=== PATIENT | male | born 1995 | race Caucasian/White ===

== ENCOUNTER 2019-01-19 19:46 | Emergency (ER) | payer OTHER ==
[2019-01-19] MEDS ORDERED: Ondansetron 4 MG/2 ML SDV IVPUSH ONE (20:30)
[2019-01-19] MEDS ORDERED: Sodium Chloride 0.9% 1,000 ML IV SCH (20:30)
[2019-01-19] MEDS ORDERED: HYDROmorphone 0.5 MG/0.5 ML Syringe IVPUSH ONE (20:32)
--- NOTE | 2019-01-19 20:42 | EDM.PDOC ---
<DanielleOlvin gleason Leonard - Last Filed: 01/19/19 21:36> ED HPI GENERAL MEDICAL PROBLEM - General Chief Complaint: Abdominal Pain Stated Complaint: ABDOMINAL PAIN Time Seen by Provider: 01/19/19 20:07 Source of Information: Reports: Patient History Limitations: Reports: No Limitations - History of Present Illness INITIAL COMMENTS - FREE TEXT/NARRATIVE: Mr. Cruz is a very pleasant 23-year-old man with no medical or surgical history whatsoever, who states that he felt feverish and had midline lower abdominal pain when he woke around 05:00 this morning. He describes the pain is sharp and crampy in character. It is constant, but made worse with most movements. He states that he had nausea yesterday, but no nausea or emesis today. He states that he had some urinary frequency yesterday, but not today. No recent flank or back pain. No recent constipation, diarrhea, or bloody bowel movements. No prior similar symptoms. The patient states that he went to the walk-in clinic today, but that no tests were performed before he was sent here for evaluation. His last solid food was around 13:00 today. The patient does not have a PCP. - Related Data Allergies Allergy/AdvReac Type Severity Reaction Status Date / Time doxycycline Allergy Diarrhea Verified 01/19/19 20:14 Home Meds: Home Meds . [No Known Home Meds] 01/19/19 [History] Past Medical History - Past Health History Medical/Surgical History: Denies Medical/Surgical History Social & Family History - Tobacco Use Smoking Status *Q: Never Smoker - Caffeine Use Caffeine Use: Reports: Tea - Alcohol Use Alcohol Use History: Yes Alcohol Use Frequency: Socially - Recreational Drug Use Recreational Drug Use: No - Living Situation & Occupation Living situation: Reports: Single, with Family (Brother) Occupation: Employed ([employer]) ED ROS GENERAL - Review of Systems Review Of Systems: ROS reveals no pertinent complaints other than HPI. ED EXAM, GI/ABD - Physical Exam Exam: See Below Exam Limited By: No Limitations General Appearance: Alert, WD/WN, No Apparent Distress Eyes: Bilateral: Normal Appearance, EOMI Ears: Normal External Exam, Hearing Grossly Normal Nose: Normal Inspection Throat/Mouth: Normal Inspection, Normal Lips, Normal Voice, No Airway Compromise Head: Atraumatic, Normocephalic Neck: Normal Inspection, Full Range of Motion Respiratory/Chest: No Respiratory Distress, Lungs Clear, Normal Breath Sounds, No Accessory Muscle Use Cardiovascular: Normal Peripheral Pulses, Regular Rate, Rhythm, No Edema, No Gallop, No JVD, No Murmur, No Rub GI/Abdominal Exam: Normal Bowel Sounds, Soft, No Organomegaly, No Distention, No Abnormal Bruit, No Mass, Tender (Palpation of most of the patient's abdomen increases his midline infraumbilical pain, although he does not have significant tenderness to most of the abdomen. The patient does, however, have tenderness to his left lower quadrant more than his right lower quadrant, and he has significant tenderness to the suprapubic region.) (Male) Exam: Deferred Rectal (Males) Exam: Deferred Back Exam: Normal Inspection, Full Range of Motion. No: CVA Tenderness (L), CVA Tenderness (R) Extremities: Normal Inspection, Normal Range of Motion, No Pedal Edema, Normal Capillary Refill Neurological: Alert, Oriented, Normal Cognition, No Motor/Sensory Deficits Psychiatric: Normal Affect Skin Exam: Warm, Dry, Intact, Normal Color, No Rash Course - Vital Signs Last Recorded V/S: Last Vital Signs Temp 99.3 F 01/19/19 20:16 Pulse 81 01/19/19 20:16 Resp 20 01/19/19 20:16 BP 121/75 01/19/19 20:16 Pulse Ox 98 01/19/19 20:16 - Orders/Labs/Meds Orders: Active Orders 24 hr Category Date Time Status Abdomen Pelvis w Cont [CT] Stat Exams 01/19/19 20:30 Taken Sodium Chloride 0.9% [Normal Saline] 1,000 ml Med 01/19/19 20:30 Active IV ASDIRECTED Sodium Chloride 0.9% [Saline Flush] Med 01/19/19 20:45 Active 10 ml FLUSH ONETIME PRN Medication Orders Sodium Chloride (Normal Saline) 1,000 mls @ 150 mls/hr IV ASDIRECTED NEW Last Admin: 01/19/19 20:56 Dose: 150 mls/hr Sodium Chloride (Saline Flush) 10 ml FLUSH ONETIME PRN PRN Reason: KEEP VEIN OPEN Last Admin: 01/19/19 22:15 Dose: 10 ml Admin: 01/19/19 20:48 Dose: 10 ml Labs: Laboratory Tests 01/19/19 01/19/1901/19/19 Range/Units 20:45 20:45 21:15 WBC 9.40 H (4.23-9.07) K/mm3 RBC 5.03 (4.63-6.08) M/mm3 Hgb 14.9 (13.7-17.5) gm/dl Hct 43.4 (40.1-51.0) % MCV 86.3 (79.0-92.2) fl MCH 29.6 (25.7-32.2) pg MCHC 34.3 (32.2-35.5) g/dl RDW Std Deviation 38.0 (35.1-43.9) fL Plt Count 246 (163-337) K/mm3 MPV 9.6 (9.4-12.3) fl Neutrophils % (Manual) 71 H (40-60) % Band Neutrophils % 2 (0-10) % Lymphocytes % (Manual) 16 L (20-40) % Atypical Lymphs % 0 % Monocytes % (Manual) 5 (2-10) % Eosinophils % (Manual) 6 (0.8-7.0) % Basophils % (Manual) 0 L (0.2-1.2) Platelet Estimate Adequate RBC Morph Comment Normal Sodium 139 (136-145) mEq/L Potassium 3.6 (3.5-5.1) mEq/L Chloride 104 (98-107) mEq/L Carbon Dioxide 26 (21-32) mEq/L Anion Gap 12.6 (5-15) BUN 14 (7-18) mg/dL Creatinine 1.0 (0.7-1.3) mg/dL Est Cr Clr Drug Dosing 119.64 mL/min Estimated GFR (MDRD) > 60 (>60) mL/min BUN/Creatinine Ratio 14.0 (14-18) Glucose 100 (74-106) mg/dL Calcium 9.0 (8.5-10.1) mg/dL Total Bilirubin 0.6 (0.2-1.0) mg/dL AST 73 H (15-37) U/L ALT 40 (16-63) U/L Alkaline Phosphatase 77 (46-116) U/L Total Protein 8.0 (6.4-8.2) g/dl Albumin 4.1 (3.4-5.0) g/dl Globulin 3.9 gm/dL Albumin/Globulin Ratio 1.1 (1-2) Urine Color Yellow (Yellow) Urine Appearance Clear (Clear) Urine pH 7.5 (5.0-8.0) Ur Specific [place] 1.025 (1.005-1.030) Urine Protein 1+ H (Negative) Urine Glucose (UA) Negative (Negative) Urine Ketones 1+ H (Negative) Urine Occult Blood Negative (Negative) Urine Nitrite Negative (Negative) Urine Bilirubin Negative (Negative) Urine Urobilinogen 0.2 (0.2-1.0) Ur Leukocyte Esterase Negative (Negative) Urine RBC Not seen (0-5) /hpf Urine WBC Not seen (0-5) /hpf Ur Squamous Epith Cells Not seen (0-5) /hpf Amorphous Sediment Few H (NOT SEEN) /hpf Urine Bacteria Few (FEW) /hpf Urine Mucus Few (FEW) /hpf Meds: Medications Generic Name Dose Route Start Last Admin Trade Name Freq PRN Reason Stop Dose Admin Sodium Chloride 1,000 mls @ 150 mls/hr 01/19/19 20:30 01/19/19 20:56 Normal Saline IV 150 mls/hr ASDIRECTED NEW Administration Sodium Chloride 10 ml 01/19/19 20:45 01/19/19 22:15 Saline Flush FLUSH 10 ml ONETIME PRN Administration KEEP VEIN OPEN Discontinued Medications Generic Name Dose Route Start Last Admin Trade Name Freq PRN Reason Stop Dose Admin Diatrizoate Meglum/Diatrizoate Sod 60 ml 01/19/19 20:45 01/19/19 22:14 Gastrografin 37% PO 01/19/19 20:46 60 ml ONETIME ONE Administration Hydromorphone HCl 0.5 mg 01/19/19 20:32 01/19/19 20:52 Dilaudid IVPUSH 01/19/19 20:33 0.5 mg ONETIME ONE Administration Iopamidol 100 ml 01/19/19 20:45 01/19/19 22:14 Isovue-300 (61%) IVPUSH 01/19/19 20:46 100 ml ONETIME ONE Administration Ondansetron HCl 4 mg 01/19/19 20:30 01/19/19 20:48 Zofran IVPUSH 01/19/19 20:31 4 mg ONETIME ONE Administration - Re-Assessments/Exams Free Text/Narrative Re-Assessment/Exam: 01/19/19 20:32 The cause of the patient's lower abdominal pain is not immediately clear. His abdomen is soft and his bowel sounds are normoactive, but palpation of most of his abdomen increases his pain, and he is significantly tender in his suprapubic region. He has no flank tenderness, and he is afebrile here in the ED. A UTI is unlikely, although I have ordered a urinalysis to evaluate. I am concerned that he may have a somewhat atypical presentation of appendicitis, perhaps if his appendix is directed towards the midline. I have therefore ordered some blood work and a CT scan of his abdomen and pelvis with oral and IV contrast. In the meantime, the patient will receive some IV Dilaudid, IV Zofran, and IV fluid. 01/19/19 21:[address] Sousa, and care of the patient turned over to him at this time, for change of shift. Departure - Departure Disposition: Home, Self-Care 01 Clinical Impression: Abdominal pain Qualifiers: Abdominal location: lower abdomen, unspecified Qualified Code(s): R10.30 - Lower abdominal pain, unspecified - Discharge Information Referrals: PCP,Ginette [Primary Care Provider] - Shivani Raymond PA-C [Physician Size Maker] - 1 Week Forms: ED Department Discharge Additional Instructions: Drink plenty of fluids. Take tylenol or motrin for pain. If that does not help , try the ultram. Take a stool softner like colace to help avoid constipation that can happen when taking dilaudid and ultram. Please return if you are worse. <Herb Sousa - Last Filed: 01/19/19 22:43> Course - Re-Assessments/Exams Free Text/Narrative Re-Assessment/Exam: 01/19/19 22:[address] Santos. 01/19/19 22:40 His WBC was slightly elevated at 9.4. His CMP and UA look good. His CT shows nothing acute. He feels better. I will give him a couple ultram for pain and a note for work. Departure - Departure Time of Disposition: 22:45 Condition: Good - Discharge Information *PRESCRIPTION DRUG MONITORING PROGRAM REVIEWED*: No *COPY OF PRESCRIPTION DRUG MONITORING REPORT IN PATIENT MARK: No
[2019-01-19] MEDS ORDERED: Diatrizoate Meglumine/Diatrizoate Sodium 37% 120 ML Bottle PO ONE (20:45)
[2019-01-19] MEDS ORDERED: Iopamidol 612 MG/ML 100 ML Bottle IVPUSH ONE (20:45)
[2019-01-19] MEDS: Sodium Chloride 0.9% 10 ML Syringe FLUSH PRN ×2 (20:48→22:15)
--- NOTE | 2019-01-23 13:46 | CT ---
CT abdomen and pelvis Technique: Multiple axial sections were obtained from above the dome of the diaphragm inferiorly through the pubic symphysis. Intravenous and oral contrast was utilized. Delayed images were obtained through the bladder. Comparison: No prior abdominal imaging is available. Findings: Visualized lung bases show nothing acute. Noncontrast appearance of the liver shows no focal parenchymal abnormality. Spleen appears within normal limits. Adrenal glands show no nodule. Kidneys show symmetric contrast enhancement without hydronephrosis or mass. Pancreas is within normal limits. Aorta shows no aneurysm. No retroperitoneal adenopathy or mesenteric abnormalities are seen. No pelvic mass or adenopathy is seen. Mild areas of increased stool noted throughout the colon. Appendix not visualized with certainty. Delayed images show contrast within the distal ureters and within the bladder. Impression: 1. Mild increased stool within the colon. 2. No additional abnormality is appreciated on CT study of the abdomen and pelvis. Diagnostic code #2 I agree with preliminary report from [facility], finalized on 01/19/19, 11:33 PM Central Time
== END 2019-01-19 22:50 | disposition home or self-care (01) ==
LOC: JD.ED 19:46
DX: R10.32 Left lower quadrant pain (principal); R10.31 Right lower quadrant pain; Z88.1 Allergy status to other antibiotic agents
CPT/HCPCS: 36415; 74177; 80053; 81001; 85007; 85027; 96361; 96374; 96375; 99284; J1170; J2405; J7040; Q9963; Q9967

== ENCOUNTER 2020-08-25 01:46 | Emergency (ER) | payer OTHER ==
[2020-08-25] MEDS ORDERED: Aspirin 81 MG Tab.Chew PO ONE (02:23)
--- NOTE | 2020-08-25 02:28 | EDM.PDOC ---
ED HPI GENERAL MEDICAL PROBLEM - General Chief Complaint: Chest Pain Stated Complaint: DIZZY/LIGHTHEADED/CHEST PAIN Time Seen by Provider: 08/25/20 02:18 Source of Information: Reports: Patient History Limitations: Reports: No Limitations - History of Present Illness INITIAL COMMENTS - FREE TEXT/NARRATIVE: The patient presents with chest pain and dizziness. This has been going on since April. He went to the walk in clinic at [place] and they did an EKG and they thought he had an enlarged heart. They did an echocardiogram and it was inconclusive. He has not seen anyone else since. He continues to have chest pain at times. Tonight it was a little worse and he was dizzy. He has no fever, chills, cough, abdominal pain, nausea or vomiting. He has no swelling or pain in his legs. He does not smoke. Onset: Gradual Duration: Week(s): Location: Reports: Chest Quality: Reports: Sharp Severity: Moderate Improves with: Reports: None Worsens with: Reports: None Associated Symptoms: Reports: Chest Pain, Shortness of Breath. Denies: Cough, Fever/Chills, Headaches, Nausea/Vomiting Left Anterior Chest Pain Score (Numeric/FACES): 8 - Related Data Allergies Allergy/AdvReac Type Severity Reaction Status Date / Time doxycycline Allergy Diarrhea Verified 08/25/20 02:13 Home Meds: Home Meds . [No Known Home Meds] 01/19/19 [History] Past Medical History - Past Health History Medical/Surgical History: Denies Medical/Surgical History Social & Family History - Family History Cardiac: Reports: [place], Pacemaker Endocrine/Metabolic: Reports: Hyperthyroidism - Tobacco Use Tobacco Use Status *Q: Former Tobacco User Years of Tobacco use: 2 Packs/Tins Daily: 0.5 Used Tobacco, but Quit: Yes Month/Year Tobacco Last Used: 05/2017 Second Hand Smoke Exposure: Yes - Caffeine Use Caffeine Use: Reports: None - Recreational Drug Use Recreational Drug Use: No - Living Situation & Occupation Living situation: Reports: Single, with Family (Brother) Occupation: Employed ([employer]) ED ROS GENERAL - Review of Systems Review Of Systems: See Below Constitutional: Reports: No Symptoms HEENT: Reports: No Symptoms Respiratory: Reports: Shortness of Breath Cardiovascular: Reports: Chest Pain Endocrine: Reports: No Symptoms GI/Abdominal: Reports: No Symptoms : Reports: No Symptoms Musculoskeletal: Reports: No Symptoms ED EXAM, GENERAL - Physical Exam Exam: See Below Exam Limited By: No Limitations General Appearance: Alert, No Apparent Distress Ears: Normal External Exam Nose: Normal Inspection Head: Atraumatic, Normocephalic Neck: Normal Inspection Respiratory/Chest: No Respiratory Distress, Lungs Clear, Normal Breath Sounds Cardiovascular: Regular Rate, Rhythm, No Edema, No Murmur GI/Abdominal: Soft, Non-Tender, No Organomegaly, No Mass Back Exam: Normal Inspection Extremities: Normal Inspection #1 Interpretation EKG Date: 08/25/20 Time: 02:02 Rhythm: NSR Rate (Beats/Min): 71 [place]: Normal P-Wave: Present QRS: Normal ST-T: Normal QT: Normal Course - Vital Signs Last Recorded V/S: Last Vital Signs Temp 97.6 F 08/25/20 02:08 Pulse 71 08/25/20 02:08 Resp 16 08/25/20 02:08 BP 147/86 H 08/25/20 02:08 Pulse Ox 98 08/25/20 02:08 - Orders/Labs/Meds Orders: Active Orders 24 hr Category Date Time Status Cardiac Monitoring [RC] . DIRECTED Care 08/25/20 02:23 Active EKG Documentation Completion [RC] STAT Care 08/25/20 02:23 Active Chest 2V [CR] Stat Exams 08/25/20 02:24 Taken Labs: Laboratory Tests 08/25/20 08/25/20 08/25/20 Range/Units 02:50 02:50 02:50 WBC 7.38 (4.23-9.07) K/mm3 RBC 5.31 (4.63-6.08) M/mm3 Hgb 15.8 (13.7-17.5) gm/dl Hct 45.9 (40.1-51.0) % MCV 86.4 (79.0-92.2) fl MCH 29.8 (25.7-32.2) pg MCHC 34.4 (32.2-35.5) g/dl RDW Std Deviation 37.9 (35.1-43.9) fL Plt Count 262 (163-337) K/mm3 MPV 9.4 (9.4-12.3) fl Neut % (Auto) 49.5 (34.0-67.9) % Lymph % (Auto) 33.2 (21.8-53.1) % [place] % (Auto) 10.7 (5.3-12.2) % Eos % (Auto) 5.8 (0.8-7.0) Baso % (Auto) 0.7 (0.1-1.2) % Neut # (Auto) 3.65 (1.78-5.38) K/mm3 Lymph # (Auto) 2.45 (1.32-3.57) K/mm3 [place] # (Auto) 0.79 (0.30-0.82) K/mm3 Eos # (Auto) 0.43 (0.04-0.54) K/mm3 Baso # (Auto) 0.05 (0.01-0.08) K/mm3 D-Dimer, Quantitative < 0.19 L (0.19-0.50) mg/L Sodium 142 (136-145) mEq/L Potassium 3.6 (3.5-5.1) mEq/L Chloride 103 (98-107) mEq/L Carbon Dioxide 27 (21-32) mEq/L Anion Gap 15.6 H (5-15) BUN 13 (7-18) mg/dL Creatinine 1.0 (0.7-1.3) mg/dL Est Cr Clr Drug Dosing 113.27 mL/min Estimated GFR (MDRD) > 60 (>60) mL/min BUN/Creatinine Ratio 13.0 L (14-18) Glucose 96 (74-106) mg/dL Calcium 9.3 (8.5-10.1) mg/dL Total Bilirubin 0.7 (0.2-1.0) mg/dL AST 16 (15-37) U/L ALT 37 (16-63) U/L Alkaline Phosphatase 67 (46-116) U/L Troponin I < 0.017 (0.00-0.056) ng/mL Total Protein 7.7 (6.4-8.2) g/dl Albumin 4.3 (3.4-5.0) g/dl Globulin 3.4 gm/dL Albumin/Globulin Ratio 1.3 (1-2) Meds: Medications Discontinued Medications Generic Name Dose Route Start Last Admin Trade Name Freq PRN Reason Stop Dose Admin Aspirin 324 mg 08/25/20 02:23 08/25/20 02:44 Aspirin 81 Mg Tab.Chew PO 08/25/20 02:24 324 mg ONETIME ONE Administration - Re-Assessments/Exams Free Text/Narrative Re-Assessment/Exam: 08/25/20 02:28 I ordered an EKG, CXR and labs. His EKG shows a NSR with no acute changes. 08/25/20 03:35 His CXR looks good. His CBC and CMP look good. His troponin and D-dimer are negative. I will discharge him home. Departure - Departure Time of Disposition: 03:40 Disposition: Home, Self-Care 01 Condition: Good Clinical Impression: Atypical chest pain Referrals: PCP,None [Primary Care Provider] - Angelica Mckeon MD [Physician] - 1 Week Forms: ED Department Discharge Additional Instructions: Drink plenty of fluids. Take tylenol or motrin as needed for pain. Follow up with Dr Frank within a week. Please return if you are worse. Sepsis Event Note (ED) - Evaluation Sepsis Screening Result: No Definite Risk - Focused Exam Vital Signs: Vital Signs Temp Pulse Resp BP Pulse Ox 08/25/20 02:08 97.6 F 71 16 147/86 H 98 - My Orders Last 24 Hours: My Active Orders 08/25/20 02:23 Cardiac Monitoring [RC] . DIRECTED EKG Documentation Completion [RC] STAT 08/25/20 02:24 Chest 2V [CR] Stat - Assessment/Plan Last 24 Hours: My Active Orders 08/25/20 02:23 Cardiac Monitoring [RC] . DIRECTED EKG Documentation Completion [RC] STAT 08/25/20 02:24 Chest 2V [CR] Stat
--- NOTE | 2020-08-25 09:07 | CR ---
Chest: 2 views of the chest were obtained. Comparison: No prior chest imaging is available. Heart size and mediastinum are normal. Lungs are clear with no acute parenchymal change. Minimal scoliosis is noted within the spine. No acute osseous abnormality is appreciated. Impression: 1. Nothing acute is appreciated on 2 view chest x-ray. Diagnostic code #2
== END 2020-08-25 03:43 | disposition home or self-care (01) ==
LOC: JD.ED 01:46
DX: R07.89 Other chest pain (principal); Z87.891 Personal history of nicotine dependence; Z88.1 Allergy status to other antibiotic agents
CPT/HCPCS: 36415; 71046; 80053; 84484; 85025; 85379; 93005; 99285; A9270; 93010; 99284

== ENCOUNTER 2022-02-05 18:36 | Emergency (ER) | payer OTHER ==
[2022-02-05] MEDS ORDERED: Ketorolac 15 MG/ML SDV ONE (20:07)
[2022-02-05] MEDS ORDERED: diphenhydrAMINE 50 MG/ML SDV ONE (20:07)
[2022-02-05] MEDS ORDERED: Metoclopramide 10 MG/2 ML SDV ONE (20:07)
[2022-02-05] MEDS ORDERED: Sodium Chloride 0.9% 1,000 ML ONE (20:07)
[2022-02-05] MEDS ORDERED: Metoclopramide 10 MG/2 ML SDV IVPUSH ONE (20:11)
[2022-02-05] MEDS ORDERED: Ketorolac 15 MG/ML SDV IVPUSH ONE (20:12)
[2022-02-05] MEDS ORDERED: diphenhydrAMINE 50 MG/ML SDV IVPUSH ONE (20:16)
[2022-02-05 20:38] LABS: ESTIMATED GFR 122 mL/min (>60)
== END 2022-02-05 22:03 ==
LOC: JD.ED 18:36
DX: G43.909 Migraine, unspecified, not intractable, without status migrainosus (principal)
CPT/HCPCS: 36415; 70450; 80048; 82947; 85025; 93005; 96374; 96375; 99284; J1200; J1885; J2765